=== PATIENT | male | born 1985 | race Caucasian/White ===

== ENCOUNTER 2024-01-08 15:56 | Emergency (ER) | payer OTHER, SELFPAY ==
[2024-01-08 15:59] VITALS: BP 153/61; BMI 28.1
--- NOTE | 2024-01-08 18:17 | ED.GENMED ---
History of Present Illness
<Yee Aguilar PA-C - Last Filed: 01/08/24 19:11>
General
Chief Complaint: Skin Problem
Source: patient
Time Seen by Provider: 01/08/24 18:08
History of Present Illness
History of Present Illness:
38yoM with a remote history of IV drug use 8 years ago presenting for evaluation of a neck lump. He reports a small lump to the left side of his neck for several months. He states he stretched 5-6 days ago and thinks he aggravated the lump. He has
been having pain and worsening swelling since that time. He denies any fevers or chills. He is otherwise asymptomatic.
Past History
<Yee Aguilar PA-C - Last Filed: 01/08/24 19:11>
Past History
ED Past Medical History: Other (Narcotic abuse, polysubstance drug abuse, opioid overdose with respiratory arrest requiring intubation December 2006, acute care hospitalization after overdose May 2015.)
ED Past Surgical History: Orthopedic
Social History
Tobacco: Smoker
Alcohol: Former
Drug: Marijuana, Cocaine, Narcotics and IVDA
Personal:
Living: with family
Employment: Employed (Self-employed)
Family History
Family History: Other (Reviewed and non-contributory)
Phy Exam
<Yee Aguilar PA-C - Last Filed: 01/08/24 19:11>
General Physical Exam
General Presentation: well appearing and no apparent distress
General age: appears stated age
General Skin: warm and dry
General Habitus: normal
ENT Exam
ENT Exam: other (Approx 3cm x 3cm area of induration present to the L posterior neck along lower hairline. Area tender to touch. No surrounding cellulitis. No crepitus. )
Cardiovascular Exam
Cardiovascular Exam: regular rate/rhythm
Pulmonary Exam
Pulmonary Exam: no respiratory distress
Course
<Yee Aguilar PA-C - Last Filed: 01/08/24 19:11>
Orders/Labs/Results
Orders:
Orders
01/08/24 19:04
Sulfamethox./Trimethoprim Ds [Bactrim Ds 800 mg/160 mg] 1 tablet PO NOW STA
Vital Signs
Initial and Last Documented VS:
Initial Vital Signs
Temp Pulse Resp BP Pulse Ox
98.7 F 92 16 153/61 98
01/08/24 15:59 01/08/24 15:59 01/08/24 15:59 01/08/24 15:59 01/08/24 15:59
Last Documented Vital Signs
Temp Pulse Resp BP Pulse Ox
98.7 F 92 16 153/61 98
01/08/24 15:59 01/08/24 15:59 01/08/24 15:59 01/08/24 15:59 01/08/24 15:59
<Janusz Seo DO - Last Filed: 01/08/24 18:39>
Orders/Labs/Results
Orders:
Orders
01/08/24 19:04
Sulfamethox./Trimethoprim Ds [Bactrim Ds 800 mg/160 mg] 1 tablet PO NOW STA
Vital Signs
Initial and Last Documented VS:
Initial Vital Signs
Temp Pulse Resp BP Pulse Ox
98.7 F 92 16 153/61 98
01/08/24 15:59 01/08/24 15:59 01/08/24 15:59 01/08/24 15:59 01/08/24 15:59
Last Documented Vital Signs
Temp Pulse Resp BP Pulse Ox
98.7 F 92 16 153/61 98
01/08/24 15:59 01/08/24 15:59 01/08/24 15:59 01/08/24 15:59 01/08/24 15:59
Procedures
<Yee Aguilar PA-C - Last Filed: 01/08/24 19:11>
Incision/Drainage/Joint Aspiration
Posterior Neck:
Anethesia: 1% Lidocaine with Epi
Preparation: cleaned with Betadine
Type of procedure: incise and drain
Nature of site: abscess
Description of abscess: less than 3cm
Loculations broken up: Yes
How much fluid was obtained?: small amount
Fluid description: purulent
Treatment: left open for drainage, antibiotics started and bandaid applied
<Yee Aguilar PA-C - Last Filed: 01/08/24 19:11>
MDM/Problems Addressed
Differential Diagnosis Includes:
38yoM here with posterior neck pain and swelling x 5-6 days. No f/c. There is a 3cm x 3cm area of induration on exam with tenderness. No surrounding cellulitis. Differential diagnosis includes but is not limited to: abscess, ingrown hair, infected
cyst, lymphadenopathy
I&D performed as above with return of purulent drainage. Patient tolerated procedure well. He was started on a course of Bactrim. Advised warm compresses and close PCP f/u. ED return precautions discussed. He was discharged in stable condition.
<Yee Aguilar PA-C - Last Filed: 01/08/24 19:11>
*Critical Care Note
Total Time (30-74mins, 75-104mins- exclusive of procedures): Not Applicable
ED Attending Note
<Yee Aguilar PA-C - Last Filed: 01/08/24 19:11>
-
Portions of this chart may have been created with voice recognition software.� Occasional wrong word or��sound alike� substitutions may have occurred due to the inherent limitations of voice recognition software.
<Janusz Seo DO - Last Filed: 01/08/24 18:39>
ED Attending Note
Patient seen and examined by attending physician: Yes
I performed the substantive portion of visit, reviewed & personally made and approve the management plan that is documented in note by myself or JOLIE.: Yes
ED Attending Note:
I have seen and evaluated the patient with a [id number] encounter. I have spoken to the advance practicer provider and involved in the medical history, the physical exam, medical decision making.
Evaluation and management service: agree unless noted differently below.
Results interpretation: agree unless noted differently below.
Focused HPI: 38-year-old male presenting with swelling and pain to the back of his neck. He noticed a bump near his hairline a few days ago. It has recently gotten worse
Physical exam: Small area midline along posterior neck with mild fluctuance and induration
Medical Decision Making: Well incised with concern of an abscess. Given the mild erythema, will start antibiotics as well
Discharge Plan
Departure
Patient Disposition: Home (Routine Discharge)
Date of Disposition: 01/08/24
Time of Disposition: 19:05
Patient with high blood pressure during this ER visit?: Yes
Discharge Problem:
Abscess of skin of neck
Instructions: Skin Abscess
Prescriptions:
New
sulfamethoxazole-trimethoprim [Bactrim] 400-80 mg tablet
1 tab PO BID Qty: 13 0RF
Activity Restrictions/Additional Instructions:
Take antibiotics as prescribed. Apply warm compresses 4-6x daily.
Please follow-up with your family doctor in 3-4 days. Return to the ER with any worsening symptoms or fevers.
Interventions
Interventions:
*Risk Screen - Suicide Last Done: 01/08/24 15:59
*Neglect/Abuse Screening Last Done: 01/08/24 15:59
Discharge Date and Time
Print Language: BELARUSIAN
[2024-01-08] MEDS: BACTRIM DS 800 MG/160 MG 1 TABLET PO (19:29)
[2024-01-08 19:30] VITALS: BP 128/78
== END 2024-01-08 19:33 | disposition home or self-care (01) ==
LOC: EMR 15:56
PROVIDERS: EMERGENCY PHYSICIAN Student in an Organized Health Care Education/Training Program
DX: L02.11 Cutaneous abscess of neck (principal); R03.0 Elevated blood-pressure reading, without diagnosis of hypertension; F17.200 Nicotine dependence, unspecified, uncomplicated
CPT/HCPCS: 99283; 10060